=== PATIENT | female | born 1965 | race Caucasian/White ===

== ENCOUNTER 2023-12-07 14:55 | Emergency (ER) | payer MEDICAID ==
[~2023-12-07] VITALS: Ht 170.2 cm; Wt 98.4 kg
[2023-12-07 15:01] VITALS: BP_SYST 130; PULSE 89; RESP 18; TEMP 97.2; O2SAT 100
[2023-12-07] MEDS ORDERED: LORazepam 1 MG TABLET PO ONE (16:00)
[2023-12-07 16:40] LABS: BASOPHILS # (AUTO) 0.1 K/uL (0.0-0.2); EOSINOPHILS # (AUTO) 0.3 K/uL (0.0-0.4); EOSINOPHILS % (AUTO) 2.5 % (0.0-4.0); HEMATOCRIT 42.7 % (36-48); HEMOGLOBIN 14.5 g/dL (12.0-16.0); LYMPHOCYTES # (AUTO) 4.6 K/uL (1.0-5.5); LYMPHOCYTES % (AUTO) 37.5 % (20.5-51.5); MEAN CORPUSCULAR HEMOGLOBIN 29 pg (27-31); MEAN CORPUSCULAR HGB CONC 34 % (32-36); MEAN CORPUSCULAR VOLUME 86 fL (79.0-98.0); MONOCYTES # (AUTO) 0.8 K/uL (0.0-1.0); MONOCYTES % (AUTO) 6.2 % (1.7-9.3); NEUTROPHILS # (AUTO) 6.4 K/uL (1.8-7.7); NEUTROPHILS % (AUTO) 52.8 % (40.0-70.0); PLATELET COUNT (AUTO) 262 K/uL (130-430); RED BLOOD CELL COUNT(AUTO) 4.96 MIL/uL (4.2-6.2); RED CELL DISTRIBUTION WIDTH 14.5 % (9.0-15.0); WHITE BLOOD COUNT (AUTO) 12.2 K/uL (4.8-10.8)
[2023-12-07] MEDS: LORazepam 1 MG TABLET PO ONE (17:01)
[2023-12-07 17:09] LABS: ANION GAP 10 (5-15); CALCIUM 9.6 mg/dL (8.4-11.0); CARBON DIOXIDE 26 mmol/L (23-29); CHLORIDE 104 mmol/L (98-107); GFR AFRICAN AMERICAN 73 mL/min (>90); GLUCOSE 137 mg/dL (74-106); POTASSIUM 3.9 mmol/L (3.5-5.1); SODIUM SERUM 140 mmol/L (136-145); UREA NITROGEN, BLOOD 11 mg/dL (8-21)
[2023-12-07 17:15] LABS: GFR NON AFRICAN-AMERICAN 61 mL/min (>90)
[2023-12-07] MEDS ORDERED: methylPREDNISolone SOD SUCC/PF 62.5 MG/ML VIAL IVP ONE (17:45)
[2023-12-07] MEDS ORDERED: KETOROLAC TROMETHAMINE 30 MG VIAL IVP ONE (17:45)
[2023-12-07] MEDS: IPRATROPIUM/ALBUTEROL SULFATE 3 ML AMPUL.NEB (DUONEB) INH ONE (18:24)
[2023-12-07 18:25] VITALS: O2SAT 100
[2023-12-07 18:45] LABS: BILIRUBIN,DIRECT 0.1 mg/dL (0.0-0.3); TOTAL BILIRUBIN 0.4 mg/dL (0.0-1.0); TOTAL PROTEIN, SERUM 7.9 g/dL (6.4-8.3)
[2023-12-07] MEDS ORDERED: AMOX-423 PO (18:51)
[2023-12-07] MEDS ORDERED: ALBMDI INH (18:51)
[2023-12-07] MEDS ORDERED: LORA-258 PO (18:58)
== END 2023-12-07 19:02 | disposition home or self-care (01) ==
LOC: SED 14:55
DX: J06.9 Acute upper respiratory infection, unspecified (principal); R10.84 Generalized abdominal pain; F41.9 Anxiety disorder, unspecified; R06.00 Dyspnea, unspecified; R05.9 Cough, unspecified; E11.9 Type 2 diabetes mellitus without complications; I10 Essential (primary) hypertension; E78.5 Hyperlipidemia, unspecified; Z98.890 Other specified postprocedural states; Z79.899 Other long term (current) drug therapy; Z79.2 Long term (current) use of antibiotics
CPT/HCPCS: 99285; 74176; 96374; 71045; 96375; 80076; 80048; 83880; 83690; 85025; 84484; 36415; 93005; 94640; J1885; J2930